=== PATIENT | male | born 1965 | race Caucasian/White ===

== ENCOUNTER → 2016-05-30 | Outpatient (CLI) | payer OTHER ==
[~2016-05-30] MED LIST: AMLO5TAB2 PO; ASP81TEC PO; AZTH250C PO; Amlodipine PO; Atorvastatin Calcium PO; CIPR2.5D2 OP; CYCL10TA9 PO; ENAL20TA PO; Enalapril PO; HCPR10FM PR; HCT25T PO; HSCO125 SL; HYDR-757 PO; NAPR-684 PO; ONDA-42 SL; PRD20T PO; RMP2.5C PO; TRAM50TA2 PO
--- OUTSIDE RECORDS SUMMARY | 2016-05-30 11:21 | XMS REPORT | Continuity of Care Document ---
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 Name Role Phone RAMON GARCIA MD PCP Insurance Providers Payer Name Policy Number Subscriber Name Relationship [place] [id number] Juanito Hernandez 18 Self / Same As Patient Advance Directives Directive Response Recorded Date/Time Advance Directives No 12/16/13 3:07am Health Care Power of Certified Endoscopy Technician No 12/16/13 3:07am Organ Donor No 12/16/13 3:07am Resuscitation Status Full Code 12/16/13 3:07am Problems Medical Problems Problem Onset Date Status Biceps tendinitis Unknown Active Chest pain Unknown Active Chest pain Unknown Active Diarrhea Unknown Active Abdominal cramping Unknown Active Diarrhea Unknown Active Medications Medication Dose Route Sig Days/Qty Instructions Order Date Discontinued Date Status Hydrocortisone/Pramoxine 0 Gm NE FOUR TIMES DAILY 1 Qty APPLY SPARINGLY TO AFFECTED AREA 09/20/08 11/21/12 Discontinued [Amlodipine] 5 Mg PO DAILY 11/21/12 10/25/13 Discontinued [Enalapril] 20 Mg PO DAILY 11/21/12 10/25/13 Discontinued Azithromycin 1 Tab PO DAILY 4 Days 11/21/12 05/14/13 Discontinued Prednisone 40 Mg PO DAILY 4 Days 11/21/12 05/14/13 Discontinued Ciprofloxacin Hcl 2 Drops OP EVERY 4HRS 3 Days 11/21/12 05/14/13 Discontinued Hydrocodone Bit/Acetaminophen 1 Ea PO EVERY 6 HOURS PRN MILD PAIN 20 Qty 05/14/13 10/25/13 Discontinued Naproxen 1 Ea PO THREE TIMES A DAY PRN PAIN 20 Qty 05/14/13 10/25/13 Discontinued Amlodipine Besylate (Norvasc 5 Mg) 5 Mg PO DAILY 10/25/13 10/25/13 Discontinued Enalapril Maleate 20 Mg PO DAILY 10/25/13 10/25/13 Discontinued Hydrochlorothiazide 25 Mg PO DAILY 10/25/13 12/16/13 Discontinued Aspirin 81 Mg PO DAILY 100 Qty 10/25/13 12/16/13 Discontinued [Atorvastatin Calcium] 10 Mg PO BEDTIME 10/25/13 12/16/13 Discontinued Ramipril 2.5 Mg PO DAILY 30 Qty 10/25/13 Active Hyoscyamine Sulfate 0.125 Mg SL EVERY 4HRS PRN CRAMPS 10 Qty 12/16/13 Active Ondansetron Hcl 4 Mg SL EVERY 4HRS PRN NAUSEA/VOMITING 10 Qty FOR NAUSEA AND VOMITING 12/16/13 Active Social History Social History Problem Response Recorded Date/Time Alcohol Use Rarely Uses 12/16/2013 3:07am Recreational Drug Use No 12/16/2013 3:07am Smoking Status Never a Smoker 12/16/2013 3:07am Query Response Start Date Stop Date Smoking Status Never a Smoker Hospital Discharge Instructions No hospital discharge instructions. Plan of Care No plan of care. Functional Status No functional status results. Allergies, Adverse Reactions, Alerts Allergen Type Severity Reaction Status Last Updated Penicillins ([id number]) Allergy Mild Active 09/20/08 Quinolones Allergy Mild Active 12/16/13 Immunizations Name Given Type Date of Pneumonia Vaccine 10/25/12 Historical Date of Influenza Vaccine 02/01/13 Historical Hepatitis B Yes Historical Vital Signs Acute Vital Signs Vital Response Date/Time Temperature (Fahrenheit) 97.7 degrees F (97.6 - 99.5) Temperature (Calculated Celsius) 36.57328 degrees C (36.4 - 37.5) Temperature Source Temporal Pulse Rate (adult) 85 bpm (60 - 90) Respiratory Rate 18 bpm (12 - 24) O2 Sat by Pulse Oximetry 97 % (88 - 100) Blood Pressure 133/95 mm Hg Pain Pain Intensity 4 Height (Feet) 6 feet Height (Inches) 3 inches Height (Calculated Centimeters) 190.061337 cm Weight (Pounds) 313 pounds Weight (Calculated Kilograms) 141.632500 kilograms Calculated BMI 39.12 Results Test Source Date Result Interp. Ref. Range Comments Activated Partial Thromboplast Time October 25, 2013 7:45am 31 SEC N 24-35 Alanine Aminotransferase (ALT/SGPT) October 25, 2013 7:45am 33 U/L N 0-55 Albumin October 25, 2013 7:45am 4.0 G/DL N 3.2-4.5 Alkaline Phosphatase October 25, 2013 7:45am 85 U/L N 40-136 Aspartate Amino Transf (AST/SGOT) October 25, 2013 7:45am 19 U/L N 5-34 BUN/Creatinine Ratio October 25, 2013 7:45am 20 - Basophils # (Auto) October 25, 2013 7:45am 0.0 10^3/uL N 0.0-0.1 Basophils (%) (Auto) October 25, 2013 7:45am 1 % N 0-10 Blood Urea Nitrogen October 25, 2013 7:45am 21 MG/DL H 7-18 Calcium Level October 25, 2013 7:45am 9.4 MG/DL N 8.5-10.1 Carbon Dioxide Level October 25, 2013 7:45am 23 MMOL/L N 21-32 Chloride Level October 25, 2013 7:45am 104 MMOL/L N 98-107 Creatinine October 25, 2013 7:45am 1.07 MG/DL N 0.60-1.30 Eosinophils # (Auto) October 25, 2013 7:45am 0.2 10^3/uL N 0.0-0.3 Eosinophils (%) (Auto) October 25, 2013 7:45am 4 % N 0-10 Glucose Level October 25, 2013 7:45am 124 MG/DL H 70-105 Hematocrit October 25, 2013 7:45am 45 % N 40-54 Hemoglobin October 25, 2013 7:45am 15.1 G/DL N 13.3-17.7 Lymphocytes # (Auto) October 25, 2013 7:45am 1.7 X 10^3 N 1.0-4.0 Lymphocytes (%) (Auto) October 25, 2013 7:45am 30 % N 12-44 Mean Corpuscular Hemoglobin October 25, 2013 7:45am 29 PG N 25-34 Mean Corpuscular Hemoglobin Concent October 25, 2013 7:45am 34 G/DL N 32- 36 Mean Corpuscular Volume October 25, 2013 7:45am 87 FL N 80-99 Mean Platelet Volume October 25, 2013 7:45am 10.1 FL N 7.4-10.4 Monocytes # (Auto) October 25, 2013 7:45am 0.6 X 10^3 N 0.0-1.0 Monocytes (%) (Auto) October 25, 2013 7:45am 11 % N 0-12 Neutrophils # (Auto) October 25, 2013 7:45am 3.1 X 10^3 N 1.8-7.8 Neutrophils (%) (Auto) October 25, 2013 7:45am 54 % N 42-75 Platelet Count October 25, 2013 7:45am 218 10^3/uL N 130-400 Potassium Level October 25, 2013 7:45am 4.5 MMOL/L N 3.6-5.0 Prothrombin Time October 25, 2013 7:45am 12.8 SEC N 12.2-14.7 Red Blood Count October 25, 2013 7:45am 5.13 10^6/uL N 4.35-5.85 Red Cell Distribution Width October 25, 2013 7:45am 13.8 % N 10.0-14.5 Sodium Level October 25, 2013 7:45am 138 MMOL/L N 135-145 Total Bilirubin October 25, 2013 7:45am 0.4 MG/DL N 0.1-1.0 Total Protein October 25, 2013 7:45am 7.4 G/DL N 6.4-8.2 Troponin I October 25, 2013 7:45am < 0.30 NG/ML - White Blood Count October 25, 2013 7:45am 5.7 10^3/uL N 4.3-11.0 Estimat Glomerular Filtration Rate October 25, 2013 7:45am > 60 - GFR INTERPRETIVE DATA UNITS FOR ESTIMATED GFR (eGFR): mL/min/1.73 M2 REFERENCE RANGE FOR ESTIMATED GFR (eGFR) eGFR NORMAL eGFR >60 MODERATELY DECREASED eGFR 30-59 SEVERLY DECREASED eGFR 15-29 KIDNEY FAILURE <15 (OR DIALYSIS) INR Comment October 25, 2013 7:45am 1.0 N 0.8-1.4 INTERPRETIVE DATASUGGESTED THERAPEUTIC RANGE FOR INR'S: VENOUS THROMBOSIS, PULMONARY EMBOLISM, OR PREVENTION OF SYSTEMIC EMBOLISM (EG. IN ATRIAL FIBRILLATION): 2.0 - 3.0 MECHANICAL PROSTHETIC HEART VALVES: 2.5 - 3.5* *NOTE: INR'S UP TO 4.5 MAY BE NECESSARY IN SELECTED GROUPS OF HIGH RISK PATIENTS. [employer] CONSENSUS CONFERENCE ON ANTITHROMBOTIC THERAPY (2000). Procedures No known history of procedures. Encounters Encounter Location Date/Time Departed Emergency Room [facility] 12/16/13 2:56am Recent Diagnosis
--- NOTE | 2016-05-30 12:38 | Diagnostic Imaging Report ---
3 views of the left ankle. INDICATION: Left ankle pain. FINDINGS: There is no fracture, dislocation, or radiopaque foreign body. Good alignment of the ankle mortise is seen. There is enthesopathy along the insertion of the Achilles tendon. IMPRESSION: No acute process. Dictated by: Dictated on workstation # [id number]
== END ==
LOC: RAD 11:17
PROVIDERS: ATTEND Chiropractor Sports Physician
DX: M25.572 Pain in left ankle and joints of left foot (principal)
CPT/HCPCS: 73610

== ENCOUNTER 2020-08-28 20:37 | Emergency (ER) | payer SELFPAY ==
[~2020-08-28] VITALS: Ht 188 cm; Wt 155.1 kg
[~2020-08-28 20:37] MED LIST changes: -TRAM50TA2 PO; +TRM50T PO
[2020-08-28] MEDS ORDERED: KETOROLAC 30 MG/ML VIAL IVP STA (20:57)
[2020-08-28] MEDS ORDERED: LACTATED RINGERS 1,000 ML IV ONE ×2 (21:00→22:15)
[2020-08-28 21:15] LABS: BASOPHILS # (AUTO) 0.1 10^3/uL (0.0-0.1); BASOPHILS % (AUTO) 1 % (0-10); EOSINOPHILS # (AUTO) 0.1 10^3/uL (0.0-0.3); EOSINOPHILS % (AUTO) 2 % (0-10); HEMATOCRIT 43 % (40-54); HEMOGLOBIN 14.2 g/dL (13.3-17.7); LYMPHOCYTES # (AUTO) 1.9 10^3/uL (1.0-4.0); LYMPHOCYTES % (AUTO) 30 % (12-44); MEAN CORPUSCULAR HEMOGLOBIN 29 pg (25-34); MEAN CORPUSCULAR HGB CONC 33 g/dL (32-36); MEAN CORPUSCULAR VOLUME 89 fL (80-99); MEAN PLATELET VOLUME 10.4 fL (9.0-12.2); MONOCYTES # (AUTO) 0.8 10^3/uL (0.0-1.0); MONOCYTES % (AUTO) 12 % (0-12); NEUTROPHILS # (AUTO) 3.4 10^3/uL (1.8-7.8); NEUTROPHILS % (AUTO) 54 % (42-75); PLATELET COUNT 194 10^3/uL (130-400); WHITE BLOOD COUNT 6.3 10^3/uL (4.3-11.0)
[2020-08-28 21:25] LABS: ALBUMIN 3.9 GM/DL (3.2-4.5); CHLORIDE 105 MMOL/L (98-107)
[2020-08-28 21:26] LABS: POTASSIUM 4.2 MMOL/L (3.6-5.0); SODIUM 137 MMOL/L (135-145)
[2020-08-28 21:27] LABS: CALCIUM 9.2 MG/DL (8.5-10.1)
[2020-08-28 21:28] LABS: GLUCOSE 154 MG/DL (70-105)
[2020-08-28 21:29] LABS: CARBON DIOXIDE 18 MMOL/L (21-32)
[2020-08-28 21:30] LABS: BILIRUBIN,TOTAL 0.3 MG/DL (0.1-1.0)
[2020-08-28 21:31] LABS: ALKALINE PHOSPHATASE 78 U/L (40-136)
[2020-08-28 21:32] LABS: CREATININE SERUM 1.23 MG/DL (0.60-1.30); GFR ESTIMATED > 60
[2020-08-28 21:33] LABS: BUN/CREATININE RATIO 14
[2020-08-28 21:34] LABS: ALANINE AMINOTRANSFERASE 36 U/L (0-55)
--- NOTE | 2020-08-28 22:12 | Diagnostic Imaging Report ---
PROCEDURE: CT urinary tract, rule out kidney stone. TECHNIQUE: Multiple contiguous axial images were obtained through the abdomen and pelvis without the use of intravenous contrast. Auto Exposure Controls were utilized during the CT exam to meet ALARA standards for radiation dose reduction. INDICATION: Flank pain. COMPARISON: Prior examination from 01/26/2015. FINDINGS: The heart size is normal. The lung bases are clear. There is some fatty infiltration of the liver. The gallbladder is contracted. There is no biliary ductal dilatation. Spleen is normal. Pancreas and adrenal glands are unremarkable. There is a 2 mm nonobstructing stone in the left kidney. There is also a 2 mm nonobstructing stone in the right kidney. There is a cyst in the anterior right kidney. There is no evidence of obstructive uropathy. Aorta is nonaneurysmal. The bowel gas pattern is nonspecific. There is no free air. There is no ascites. There are no focal inflammatory changes. Bladder is normal. There is no pelvic mass, adenopathy or free fluid. There are moderate degenerative changes in the spine. IMPRESSION: 1. Bilateral tiny nonobstructing renal calculi without evidence of obstructive uropathy. There is also a cyst in the anterior aspect of the right kidney which is relatively unchanged. 2. Fatty infiltration of the liver. 3. No other acute abnormality in the abdomen or pelvis. Dictated by: Dictated on workstation # [id number]
--- NOTE | 2020-08-28 22:16 | ED Abdominal Pain ---
General Chief Complaint: General Problems/Pain Stated Complaint: GROIN PAIN Nursing Triage Note: PT TO ROOM 06 VIA W/C AND TRANSFERRED SELF TO BED WITH C/O RIGHT SIDE GROIN PAIN. PT STATES HE WAS BOWLING AND FELT SOMETHING "POP AND TEAR". Sepsis Screen: No Definite Risk Source of Information: Patient History of Present Illness Date Seen by Provider: August 28, 2020 Time Seen by Provider: 20:53 Initial Comments PT ARRIVES VIA POV WANTS WHEELCHAIR ON ARRIVAL--STATES HE "CAN'T WALK" STATES 45 MINUTES PRIOR TO ARRIVAL, HE WAS BOWLING AND "FELT A POP AND A TEAR" IN HIS RIGHT GROIN C/O SEVERE PAIN TO AREA, RATES 10 HAS NOT TAKEN ANYTHING FOR PAIN DID NOT FALL OR HAVE ANY DIRECT TRAUMA TO THE AREA NO SWELLING OR BRUISING TO THE AREA NO RADIATION OF PAIN NO ABDOMINAL PAIN NO TESTICULAR PAIN NO PARESTHESIAS OR MOTOR DEFICITS NO DIFFICULTY URINATING NO NAUSEA/VOMITING NO FEVER OR RECENT ILLNESS NO PRIOR INJURY OR SURGERY TO THIS AREA. NO HISTORY OF SIMILAR PT HAS HAD "1 BEER" TONIGHT DENIES ANY COVID-19 SYMPTOMS OR KNOWN EXPOSURE TO COVID-19 PCP: NONE Allergies and Home Medications Allergies Coded Allergies: Penicillins (Unverified Allergy, Mild, 09/20/08) Quinolones (Verified Allergy, Mild, 12/16/13) Home Medications Cyclobenzaprine HCl 10 Mg Tablet, 10 MG PO Q8H PRN for SPASMS Prescribed by: BRAULIO SARGENT on 01/26/15 1523 Cyclobenzaprine HCl 10 Mg Tablet, 10 MG PO Q8H PRN for SPASMS Prescribed by: SANDRA MUÑOZ on 08/28/20 2244 Hyoscyamine Sulfate 0.125 Mg Tab, 0.125 MG SL Q4H PRN for CRAMPS Prescribed by: CAROL ESPINAL on 12/16/13 0428 Ketorolac Tromethamine 10 Mg Tablet, 10 MG PO Q6H Prescribed by: SANDRA MUÑOZ on 08/28/20 2244 Ondansetron Hcl 4 Mg Tab, 4 MG SL Q4H PRN for NAUSEA/VOMITING FOR NAUSEA AND VOMITING Prescribed by: CAROL ESPINAL on 12/16/13 0433 Ramipril 2.5 Mg Cap, 2.5 MG PO DAILY Prescribed by: ELE GARCIA on 10/25/13 1725 Tramadol HCl 50 Mg Tablet, 50 MG PO Q4H PRN for PAIN Prescribed by: BRAULIO SARGENT on 01/26/15 1523 Patient Home Medication List Home Medication List Reviewed: Yes Review of Systems Review of Systems Constitutional: no symptoms reported Respiratory: No Symptoms Reported Cardiovascular: No Symptoms Reported Gastrointestinal: See HPI Genitourinary: No Symptoms Reported Musculoskeletal: see HPI Skin: no symptoms reported Psychiatric/Neurological: No Symptoms Reported Endocrine: No Symptoms Reported Hematologic/Lymphatic: No Symptoms Reported Past Ppsutbf-[id number] Hx Patient Social History Alcohol Use: Rarely Uses Number of Drinks Today: 1 Alcohol Beverage of Choice: Beer Drug of Choice: DENIES Smoking Status: Never a Smoker 2nd Hand Smoke Exposure: No Recent Infectious Disease Expo: No Immunizations Up To Date Date of Pneumonia Vaccine: Oct 25, 2012 Date of Influenza Vaccine: Feb 01, 2013 Past Medical History Surgeries: Yes (CARDIAC CATH) Cardiac Respiratory: No Cardiac: Yes Hypertension Neurological: No Genitourinary: No Gastrointestinal: No Musculoskeletal: No Endocrine: Yes (MORBID OBESITY) Hypothyroidsim HEENT: No Cancer: No Psychosocial: No Integumentary: No Blood Disorders: No Family Medical History Family history: Hypertension 19 FATHER No Pertinent Family Hx Physical Exam Vital Signs Vital Signs - First Documented 08/28/20 08/28/20 20:51 23:41 Temp 36.0 Pulse 78 Resp 19 B/P (MAP) 150/101 (117) Pulse Ox 96 O2 Delivery Room Air Capillary Refill : Less Than 3 Seconds Height/Weight/BMI Height: 6'3" Weight: 330lbs. oz. 149.596747nm; 43.00 BMI Method:Estimated General Appearance: WD/WN, obese, other (VERY DRAMATIC, MOVES VERY SLOWLY, AND BENT AT WAIST. MALODOROUS, + ODOR OF ETOH) Respiratory: normal breath sounds Cardiovascular: normal peripheral pulses, regular rate, rhythm Gastrointestinal: normal bowel sounds, non tender, soft Genital/Rectal: normal genital exam; No tenderness Extremities: other (TENDERNESS TO RIGHT INGUINAL AREA AND UPPER/MEDIAL THIGH. NO SWELLING OR BRUISING. NO HERNIA NOTED. LIMITED ROM OF RIGHT LEG DUE TO PAIN ) Back: no CVA tenderness Neurologic/Psychiatric: no motor/sensory deficits, alert, oriented x 3 Skin: normal color, warm/dry Progress/Results/Core Measures Results/Orders Lab Results Laboratory Tests Test 08/28/20 21:09 08/28/20 22:22 Range/Units White Blood Count 6.3 4.3-11.0 10^3/uL Red Blood Count 4.84 4.30-5.52 10^6/uL Hemoglobin 14.2 13.3-17.7 g/dL Hematocrit 43 40-54 % Mean Corpuscular Volume 89 80-99 fL Mean Corpuscular Hemoglobin 29 25-34 pg Mean Corpuscular Hemoglobin Concent 33 32-36 g/dL Red Cell Distribution Width 13.5 10.0-14.5 % Platelet Count 194 130-400 10^3/uL Mean Platelet Volume 10.4 9.0-12.2 fL Immature Granulocyte % (Auto) 1 % Neutrophils (%) (Auto) 54 42-75 % Lymphocytes (%) (Auto) 30 12-44 % Monocytes (%) (Auto) 12 0-12 % Eosinophils (%) (Auto) 2 0-10 % Basophils (%) (Auto) 1 0-10 % Neutrophils # (Auto) 3.4 1.8-7.8 10^3/uL Lymphocytes # (Auto) 1.9 1.0-4.0 10^3/uL Monocytes # (Auto) 0.8 0.0-1.0 10^3/uL Eosinophils # (Auto) 0.1 0.0-0.3 10^3/uL Basophils # (Auto) 0.1 0.0-0.1 10^3/uL Immature Granulocyte # (Auto) 0.0 0.0-0.1 10^3/uL Sodium Level 137 135-145 MMOL/L Potassium Level 4.2 3.6-5.0 MMOL/L Chloride Level 105 98-107 MMOL/L Carbon Dioxide Level 18 L 21-32 MMOL/L Anion Gap 14 5-14 MMOL/L Blood Urea Nitrogen 17 7-18 MG/DL Creatinine 1.23 0.60-1.30 MG/DL Estimat Glomerular Filtration Rate > 60 BUN/Creatinine Ratio 14 Glucose Level 154 H 70-105 MG/DL Calcium Level 9.2 8.5-10.1 MG/DL Corrected Calcium 9.3 8.5-10.1 MG/DL Total Bilirubin 0.3 0.1-1.0 MG/DL Aspartate Amino Transf (AST/SGOT) 26 5-34 U/L Alanine Aminotransferase (ALT/SGPT) 36 0-55 U/L Alkaline Phosphatase 78 40-136 U/L Total Protein 7.0 6.4-8.2 GM/DL Albumin 3.9 3.2-4.5 GM/DL Serum Alcohol < 10 <10 MG/DL Urine Color YELLOW Urine Clarity CLEAR Urine pH 6.0 5-9 Urine Specific [place] 1.025 H 1.016-1.022 Urine Protein NEGATIVE NEGATIVE Urine Glucose (UA) NEGATIVE NEGATIVE Urine Ketones NEGATIVE NEGATIVE Urine Nitrite NEGATIVE NEGATIVE Urine Bilirubin NEGATIVE NEGATIVE Urine Urobilinogen 0.2 < = 1.0 MG/DL Urine Leukocyte Esterase NEGATIVE NEGATIVE Urine RBC (Auto) NEGATIVE NEGATIVE Urine RBC NONE /HPF Urine WBC NONE /HPF Urine Squamous Epithelial Cells RARE /HPF Urine Crystals NONE /LPF Urine Bacteria NEGATIVE /HPF Urine Casts NONE /LPF Urine Mucus NEGATIVE /LPF Urine Culture Indicated NO Urine Opiates Screen NEGATIVE NEGATIVE Urine Oxycodone Screen NEGATIVE NEGATIVE Urine Methadone Screen NEGATIVE NEGATIVE Urine Propoxyphene Screen NEGATIVE NEGATIVE Urine Barbiturates Screen NEGATIVE NEGATIVE Ur Tricyclic Antidepressants Screen NEGATIVE NEGATIVE Urine Phencyclidine Screen NEGATIVE NEGATIVE Urine Amphetamines Screen NEGATIVE NEGATIVE Urine Methamphetamines Screen NEGATIVE NEGATIVE Urine Benzodiazepines Screen NEGATIVE NEGATIVE Urine Cocaine Screen NEGATIVE NEGATIVE Urine Cannabinoids Screen NEGATIVE NEGATIVE My Orders Orders - SANDRA MUÑOZ DO Ed Iv/Invasive Line Start (08/28/20 20:57) Alcohol (08/28/20 20:57) Cbc With Automated Diff (08/28/20 20:57) Comprehensive Metabolic Panel (08/28/20 20:57) Drug Screen Stat (Urine) (08/28/20 20:57) Ua Culture If Indicated (08/28/20 20:57) Ed Iv/Invasive Line Start (08/28/20 20:57) Lactated Ringers (Lr 1000 Ml Iv Solution (08/28/20 21:00) Ketorolac Injection (Toradol Injection) (08/28/20 20:57) Ct Abd/Pelvis Wo(Kidney Stone) (08/28/20 21:09) Abdomen/Kub 1view (08/28/20 21:09) Ed Iv/Invasive Line Start (08/28/20 22:06) Lactated Ringers (Lr 1000 Ml Iv Solution (08/28/20 22:15) Rx-Cyclobenzaprine Tablet (Rx-Flexeril T (08/28/20 22:41) Rx-Naproxen (Rx-Naprosyn) (08/28/20 22:41) Medications Given in ED Vital Signs/I&O 08/28/20 08/28/20 20:51 23:41 Temp 36.0 36.0 Pulse 78 78 Resp 19 19 B/P (MAP) 150/101 (117) 146/98 (117) Pulse Ox 96 O2 Delivery Room Air Room Air Blood Pressure Mean: 117 Progress Progress Note : Progress Note GIVEN TORADOL FOR PAIN WITH IMPROVEMENT PT ABLE TO WALK OUT OF ER ON HIS OWN Diagnostic Imaging Comments CT ABDOMEN/PELVIS--PER RADIOLOGIST REPORT AT 2215 FINDINGS: The heart size is normal. The lung bases are clear. There is some fatty infiltration of the liver. The gallbladder is contracted. There is no biliary ductal dilatation. Spleen is normal. Pancreas and adrenal glands are unremarkable. There is a 2 mm nonobstructing stone in the left kidney. There is also a 2 mm nonobstructing stone in the right kidney. There is a cyst in the anterior right kidney. There is no evidence of obstructive uropathy. Aorta is nonaneurysmal. The bowel gas pattern is nonspecific. There is no free air. There is no ascites. There are no focal inflammatory changes. Bladder is normal. There is no pelvic mass, adenopathy or free fluid. There are moderate degenerative changes in the spine. IMPRESSION: 1. Bilateral tiny nonobstructing renal calculi without evidence of obstructive uropathy. There is also a cyst in the anterior aspect of the right kidney which is relatively unchanged. 2. Fatty infiltration of the liver. 3. No other acute abnormality in the abdomen or pelvis. Reviewed: Reviewed by Me Departure Impression Primary Impression: Strain of right groin Disposition: HOME, SELF-CARE Condition: Improved Departure-Patient Inst. Decision time for Depature: 22:40 Referrals: NO,LOCAL PHYSICIAN (PCP/Family) Primary Care Physician Patient Instructions: Groin Strain (DC) Add. Discharge Instructions: ICE TO SORE AREA AT 20 MINUTE INTERVALS FOR FIRST 1-2 DAYS, THEN ALTERNATE ICE AND HEAT TO AREA AT 20 MINUTE INTERVAL NO LIFTING, NO TWISTING OR BENDING, OR ANY STRENUOUS ACTIVITIES UNTIL YOU ARE CLEARED BY YOUR DR. FOLLOW UP WITH YOUR DR NEXT WEEK FOR FURTHER CARE All discharge instructions reviewed with patient and/or family. Voiced understanding. Scripts Cyclobenzaprine HCl (Cyclobenzaprine HCl) 10 Mg Tablet 10 MG PO Q8H PRN for SPASMS, #15 TAB 0 Refills Prov: SANDAR MUÑOZ DO 08/28/20 Ketorolac Tromethamine (Ketorolac Tromethamine) 10 Mg Tablet 10 MG PO Q6H for Pain, #15 TAB Prov: SANDRA MUÑOZ DO 08/28/20 SANDRA MUÑOZ DO August 28, 2020 22:16
[2020-08-28 22:28] LABS: BILIRUBIN,URINE NEGATIVE (NEGATIVE); CLARITY,URINE CLEAR; COLOR,URINE YELLOW; GLUCOSE, URINE (UA) NEGATIVE (NEGATIVE); KETONES,URINE NEGATIVE (NEGATIVE); LEUKOCYTE ESTERASE ,URINE NEGATIVE (NEGATIVE); NITRITE,URINE NEGATIVE (NEGATIVE); PROTEIN,URINE NEGATIVE (NEGATIVE)
[2020-08-28 22:35] LABS: BACTERIA,URINE NEGATIVE /HPF; SQUAMOUS EPITHELIAL CELL,UR RARE /HPF
[2020-08-28] MEDS ORDERED: RX-CYCLOBENZAPRINE 10 MG (FLEXERIL) TAB PPK#3 PO STA (22:41)
[2020-08-28] MEDS ORDERED: RX-NAPROXEN (NAPROSYN) 250 MG TAB PPK#4 PO STA (22:41)
[2020-08-28 22:42] LABS: AMPHETAMINE SCREEN, URINE NEGATIVE (NEGATIVE); BARBITURATE SCREEN URINE NEGATIVE (NEGATIVE); BENZODIAZEPINES SCREEN URINE NEGATIVE (NEGATIVE); CANNABINOID SCREEN, URINE NEGATIVE (NEGATIVE); COCAINE SCREEN URINE NEGATIVE (NEGATIVE); METHADONE STAT NEGATIVE (NEGATIVE); METHAMPHETAMINE SCREEN URINE S NEGATIVE (NEGATIVE); OPIATE SCREEN URINE NEGATIVE (NEGATIVE); OXYCODONE STAT NEGATIVE (NEGATIVE); PROPOXYPHENE STAT NEGATIVE (NEGATIVE); TRICYCLIC ANTIDEPRESSANTS SCRE NEGATIVE (NEGATIVE)
[2020-08-28] MEDS ORDERED: CYCL10TA9 PO (22:44)
[2020-08-28] MEDS ORDERED: KETO10TA PO (22:44)
[2020-08-28 23:41] VITALS: BP 146/98
--- NOTE | 2020-08-29 07:59 | Diagnostic Imaging Report ---
INDICATION: Flank pain. COMPARISON: Followup CT from same day. FINDINGS: 2 supine radiographic views of the abdomen were obtained. Small bowel loops are nondistended. There is no large collection of free intraperitoneal air. Mild air and stool is noted scattered throughout the colon. No unexpected extraosseous calcifications or radiopaque foreign bodies are seen. IMPRESSION: 1. Nonobstructed small bowel gas pattern. Dictated by: Dictated on workstation # [id number]
== END 2020-08-28 22:54 | disposition home or self-care (01) ==
LOC: EDUNIT# 20:37 → ER 20:41
DX: S39.011A Strain of muscle, fascia and tendon of abdomen, initial encounter (principal); E66.01 Morbid (severe) obesity due to excess calories; I10 Essential (primary) hypertension; Z68.41 Body mass index [BMI] 40.0-44.9, adult; Z88.0 Allergy status to penicillin; Z88.8 Allergy status to other drugs, medicaments and biological substances; Z79.899 Other long term (current) drug therapy; X50.0XXA Overexertion from strenuous movement or load, initial encounter
CPT/HCPCS: 74018; 74176; 80053; 80306; 81000; 85025; 99284; G0480; 36415; 80320

== ENCOUNTER 2021-04-24 01:10 | Emergency (ER) | payer SELFPAY ==
[~2021-04-24] VITALS: Ht 190 cm; Wt 144.7 kg
[~2021-04-24 01:10] MED LIST changes: +CYCL10TA25 PO; -CYCL10TA9 PO; +KETO10TA PO
[2021-04-24] MEDS ORDERED: KETOROLAC 30 MG/ML VIAL IVP STA (01:37)
[2021-04-24 01:42] LABS: BILIRUBIN,URINE NEGATIVE (NEGATIVE); CLARITY,URINE CLEAR; COLOR,URINE YELLOW; GLUCOSE, URINE (UA) NEGATIVE (NEGATIVE); KETONES,URINE NEGATIVE (NEGATIVE); LEUKOCYTE ESTERASE ,URINE NEGATIVE (NEGATIVE); NITRITE,URINE NEGATIVE (NEGATIVE); PROTEIN,URINE NEGATIVE (NEGATIVE)
[2021-04-24] MEDS ORDERED: ONDANSETRON 4 MG/2 ML (SDV) Z0FRAN IVP ONE (01:45)
[2021-04-24] MEDS ORDERED: LACTATED RINGERS 1,000 ML IV ONE (01:45)
[2021-04-24 02:00] LABS: BACTERIA,URINE NEGATIVE /HPF
[2021-04-24 02:06] LABS: BASOPHILS % (AUTO) 0 % (0-10); EOSINOPHILS # (AUTO) 0.1 10^3/uL (0.0-0.3); EOSINOPHILS % (AUTO) 1 % (0-10); HEMATOCRIT 42 % (40-54); HEMOGLOBIN 13.6 g/dL (13.3-17.7); LYMPHOCYTES # (AUTO) 1.3 10^3/uL (1.0-4.0); LYMPHOCYTES % (AUTO) 14 % (12-44); MEAN CORPUSCULAR HEMOGLOBIN 29 pg (25-34); MEAN CORPUSCULAR HGB CONC 32 g/dL (32-36); MEAN CORPUSCULAR VOLUME 89 fL (80-99); MEAN PLATELET VOLUME 9.9 fL (9.0-12.2); MONOCYTES # (AUTO) 1.1 10^3/uL (0.0-1.0); MONOCYTES % (AUTO) 12 % (0-12); NEUTROPHILS # (AUTO) 6.9 10^3/uL (1.8-7.8); NEUTROPHILS % (AUTO) 73 % (42-75); PLATELET COUNT 197 10^3/uL (130-400); WHITE BLOOD COUNT 9.5 10^3/uL (4.3-11.0)
[2021-04-24 02:12] LABS: AMPHETAMINE SCREEN, URINE NEGATIVE (NEGATIVE); BARBITURATE SCREEN URINE NEGATIVE (NEGATIVE); BENZODIAZEPINES SCREEN URINE NEGATIVE (NEGATIVE); CANNABINOID SCREEN, URINE NEGATIVE (NEGATIVE); COCAINE SCREEN URINE NEGATIVE (NEGATIVE); METHADONE STAT NEGATIVE (NEGATIVE); METHAMPHETAMINE SCREEN URINE S NEGATIVE (NEGATIVE); OPIATE SCREEN URINE POSITIVE (NEGATIVE); OXYCODONE STAT NEGATIVE (NEGATIVE); PROPOXYPHENE STAT NEGATIVE (NEGATIVE); TRICYCLIC ANTIDEPRESSANTS SCRE NEGATIVE (NEGATIVE)
[2021-04-24 02:12] LABS: ALBUMIN 4.1 GM/DL (3.2-4.5); POTASSIUM 4.2 MMOL/L (3.6-5.0)
[2021-04-24 02:13] LABS: CALCIUM 9.2 MG/DL (8.5-10.1)
[2021-04-24 02:14] LABS: TOTAL PROTEIN 7.8 GM/DL (6.4-8.2)
[2021-04-24 02:16] LABS: BILIRUBIN,TOTAL 1.1 MG/DL (0.1-1.0)
[2021-04-24 02:18] LABS: CREATININE SERUM 2.63 MG/DL (0.60-1.30)
[2021-04-24] MEDS ORDERED: NS IV 1000 ML 1,000 ML IV SCH (02:30)
--- NOTE | 2021-04-24 02:46 | ED Abdominal Pain ---
General Chief Complaint: Abdominal/GI Problems Stated Complaint: KIDNEY STONE Nursing Triage Note: DX WITH 2MM LEFT RENAL STONE 04/22/21 AT [facility]. REPORTS PAIN INCREASED TONIGHT. Source of Information: Patient History of Present Illness Date Seen by Provider: Apr 24, 2021 Time Seen by Provider: 01:30 Initial Comments PT ARRIVES VIA POV FROM HOME STATES HE WAS DX WITH 2 MM KIDNEY STONE ON THE LEFT, 3 DAYS AGO AT [facility] IN [place] WAS REFERRED TO A UROLOGIST AT [place], BUT HAS NOT ATTEMPTED TO MAKE AN APPOINTMENT YET. HAS BEEN HAVING LLQ PAIN X 4 DAYS WAS SENT HOME WITH UNKNOWN MEDICATIONS, BUT THINKS ONE WAS HYDROCODONE ( CONFIRMED THAT PT WAS DISMISSED WITH RX'S FOR FLOMAX, ZOFRAN, HYDROCODONE 5/325). WAS ALSO SENT HOME WITH A STRAINER FOR URINE STATES IT WAS NOT HELPING, SO HIS FIELD SUPPORT REPRESENTATIVE IN [place] GAVE HIM A HIGHER STRENGTH PAIN GOT WORSE TONIGHT AROUND 2230 AND TOOK 1 HYDROCODONE--NO IMPROVEMENT STATES HOT SHOWER HELPS WITH PAIN SLIGHT NAUSEA WITH PAIN, NO VOMITING. NO NAUSEA NOW NO PAIN ON URINATION, BUT STREAM IS A LITTLE WEAKER THAN NORMAL NO OBVIOUS BLOOD IN URINE NO FEVER NO PRIOR HISTORY OF KIDNEY STONES OR ANY KIDNEY PROBLEMS PT HAS NOT HAD COVID-19 VACCINE PCP: FIELD SUPPORT REPRESENTATIVE IN [place], [place] Allergies and Home Medications Allergies Coded Allergies: Penicillins (Unverified Allergy, Mild, 09/20/08) Quinolones (Verified Allergy, Mild, 12/16/13) Patient Home Medication List Home Medication List Reviewed: Yes Cyclobenzaprine HCl (Cyclobenzaprine HCl) 10 Mg Tablet, 10 MG PO Q8H PRN for SPASMS Prescribed by: BRAULIO SARGENT on 01/26/15 1523 Cyclobenzaprine HCl (Cyclobenzaprine HCl) 10 Mg Tablet, 10 MG PO Q8H PRN for SPASMS Prescribed by: SANDRA MUÑOZ on 08/28/20 2244 Hydrocodone Bit/Acetaminophen (HYDROcodone/APAP 7.5/325 TAB) 1 Ea Tablet, 1-2 EA PO Q4-6 PRN for PAIN Prescribed by: SANDRA MUÑOZ on 04/24/21 0257 Hyoscyamine Sulfate (Levsin Sl) 0.125 Mg Tab, 0.125 MG SL Q4H PRN for CRAMPS Prescribed by: CAROL ESPINAL on 12/16/13 0428 Ketorolac Tromethamine (Ketorolac Tromethamine) 10 Mg Tablet, 10 MG PO Q6H Prescribed by: SANDRA MUÑOZ on 08/28/20 2244 Ondansetron Hcl (Zofran Oral Dissolve) 4 Mg Tab, 4 MG SL Q4H PRN for NAUSEA/VOMITING Prescribed by: CAROL ESPINAL on 12/16/13 0433 Ramipril (Altace) 2.5 Mg Cap, 2.5 MG PO DAILY Prescribed by: ELE GARCIA on 10/25/13 1725 Tramadol HCl (Tramadol HCl) 50 Mg Tablet, 50 MG PO Q4H PRN for PAIN Prescribed by: BRAULIO SARGENT on 01/26/15 1523 Review of Systems Review of Systems Constitutional: no symptoms reported Respiratory: No Symptoms Reported Cardiovascular: No Symptoms Reported Gastrointestinal: See HPI, Abdominal Pain, Nausea; Denies Vomiting Genitourinary: See HPI Musculoskeletal: No back pain Skin: no symptoms reported Psychiatric/Neurological: No Symptoms Reported Endocrine: No Symptoms Reported Hematologic/Lymphatic: No Symptoms Reported Past Fkousfl-Iheufc-Tqlfwb Hx Patient Social History Tobacco Use?: No Substance use?: No Alcohol Use?: Yes Alcohol Frequency: Rarely Pt feels they are or have been: No Past Medical History Surgery/Hospitalization HX: HEART CATH, HYPOTHRYOID, HTN, OBESITY. Surgeries: Yes (CARDIAC CATH) Cardiac Respiratory: No Cardiac: Yes Hypertension Neurological: No Genitourinary: Yes (DX KIDNEY STONE 12/20/21 ) Kidney Stones Gastrointestinal: No Musculoskeletal: No Endocrine: Yes (MORBID OBESITY) Hypothyroidsim, Diabetes, Non-Insulin dep HEENT: No Cancer: No Psychosocial: No Integumentary: No Blood Disorders: No Family Medical History Family history: Hypertension 19 FATHER No Pertinent Family Hx Physical Exam Vital Signs Vital Signs - First Documented 04/24/21 01:19 Temp 36.7 Pulse 101 Resp 18 B/P (MAP) 202/105 (137) Pulse Ox 97 O2 Delivery Room Air Capillary Refill : Less Than 3 Seconds Height/Weight/BMI Height: 6'3" Weight: 330lbs. oz. 149.281262wg; 40.00 BMI Method:Estimated General Appearance: WD/WN, no apparent distress, obese (MORBIDLY OBESE, SITTING ON SIDE OF BED, DOES NOT APPEAR TO BE IN ANY DISCOMFORT OR DISTRESS. ) Neck: normal inspection Respiratory: normal breath sounds, no respiratory distress, no accessory muscle use Cardiovascular: regular rate, rhythm, no murmur Gastrointestinal: normal bowel sounds, non tender, soft Back: normal inspection, no CVA tenderness Neurologic/Psychiatric: no motor/sensory deficits, alert, normal mood/affect, oriented x 3 Skin: normal color, warm/dry; No rash Progress/Results/Core Measures Results/Orders Lab Results Laboratory Tests Test 04/24/21 01:27 04/24/21 01:55 Range/Units Urine Color YELLOW Urine Clarity CLEAR Urine pH 6.0 5-9 Urine Specific [place] 1.010 L 1.016-1.022 Urine Protein NEGATIVE NEGATIVE Urine Glucose (UA) NEGATIVE NEGATIVE Urine Ketones NEGATIVE NEGATIVE Urine Nitrite NEGATIVE NEGATIVE Urine Bilirubin NEGATIVE NEGATIVE Urine Urobilinogen 0.2 < = 1.0 MG/DL Urine Leukocyte Esterase NEGATIVE NEGATIVE Urine RBC (Auto) 3+ H NEGATIVE Urine RBC 10-25 H /HPF Urine WBC NONE /HPF Urine Squamous Epithelial Cells NONE /HPF Urine Crystals NONE /LPF Urine Bacteria NEGATIVE /HPF Urine Casts NONE /LPF Urine Mucus NEGATIVE /LPF Urine Culture Indicated NO Urine Opiates Screen POSITIVE H NEGATIVE Urine Oxycodone Screen NEGATIVE NEGATIVE Urine Methadone Screen NEGATIVE NEGATIVE Urine Propoxyphene Screen NEGATIVE NEGATIVE Urine Barbiturates Screen NEGATIVE NEGATIVE Ur Tricyclic Antidepressants Screen NEGATIVE NEGATIVE Urine Phencyclidine Screen NEGATIVE NEGATIVE Urine Amphetamines Screen NEGATIVE NEGATIVE Urine Methamphetamines Screen NEGATIVE NEGATIVE Urine Benzodiazepines Screen NEGATIVE NEGATIVE Urine Cocaine Screen NEGATIVE NEGATIVE Urine Cannabinoids Screen NEGATIVE NEGATIVE White Blood Count 9.5 4.3-11.0 10^3/uL Red Blood Count 4.74 4.30-5.52 10^6/uL Hemoglobin 13.6 13.3-17.7 g/dL Hematocrit 42 40-54 % Mean Corpuscular Volume 89 80-99 fL Mean Corpuscular Hemoglobin 29 25-34 pg Mean Corpuscular Hemoglobin Concent 32 32-36 g/dL Red Cell Distribution Width 13.1 10.0-14.5 % Platelet Count 197 130-400 10^3/uL Mean Platelet Volume 9.9 9.0-12.2 fL Immature Granulocyte % (Auto) 0 % Neutrophils (%) (Auto) 73 42-75 % Lymphocytes (%) (Auto) 14 12-44 % Monocytes (%) (Auto) 12 0-12 % Eosinophils (%) (Auto) 1 0-10 % Basophils (%) (Auto) 0 0-10 % Neutrophils # (Auto) 6.9 1.8-7.8 10^3/uL Lymphocytes # (Auto) 1.3 1.0-4.0 10^3/uL Monocytes # (Auto) 1.1 H 0.0-1.0 10^3/uL Eosinophils # (Auto) 0.1 0.0-0.3 10^3/uL Basophils # (Auto) 0.0 0.0-0.1 10^3/uL Immature Granulocyte # (Auto) 0.0 0.0-0.1 10^3/uL Sodium Level 128 L 135-145 MMOL/L Potassium Level 4.2 3.6-5.0 MMOL/L Chloride Level 96 L 98-107 MMOL/L Carbon Dioxide Level 23 21-32 MMOL/L Anion Gap 9 5-14 MMOL/L Blood Urea Nitrogen 27 H 7-18 MG/DL Creatinine 2.63 H 0.60-1.30 MG/DL Estimat Glomerular Filtration Rate 28 BUN/Creatinine Ratio 10 Glucose Level 119 H 70-105 MG/DL Calcium Level 9.2 8.5-10.1 MG/DL Corrected Calcium 9.1 8.5-10.1 MG/DL Total Bilirubin 1.1 H 0.1-1.0 MG/DL Aspartate Amino Transf (AST/SGOT) 9 5-34 U/L Alanine Aminotransferase (ALT/SGPT) 20 0-55 U/L Alkaline Phosphatase 64 40-136 U/L Total Protein 7.8 6.4-8.2 GM/DL Albumin 4.1 3.2-4.5 GM/DL My Orders Orders - SANDRA MUÑOZ DO Ed Iv/Invasive Line Start (04/24/21 01:37) Ct Abd/Pelvis Wo(Kidney Stone) (04/24/21 01:37) Abdomen/Kub 1view (04/24/21 01:37) Cbc With Automated Diff (04/24/21 01:37) Comprehensive Metabolic Panel (04/24/21 01:37) Drug Screen Stat (Urine) (04/24/21 01:37) Ua Culture If Indicated (04/24/21 01:37) Ed Iv/Invasive Line Start (04/24/21 01:37) Lactated Ringers (Lr 1000 Ml Iv Solution (04/24/21 01:45) Ondansetron Injection (Zofran Injectio (04/24/21 01:45) Ketorolac Injection (Toradol Injection) (04/24/21 01:37) Ed Iv/Invasive Line Start (04/24/21 02:29) Ns Iv 1000 Ml (Sodium Chloride 0.9%) (04/24/21 02:30) Medications Given in ED Vital Signs/I&O 04/24/21 04/24/21 01:19 03:57 Temp 36.7 36.5 Pulse 101 89 Resp 18 16 B/P (MAP) 202/105 (137) 167/95 Pulse Ox 97 99 O2 Delivery Room Air Room Air Blood Pressure Mean: 137 Progress Progress Note : Progress Note GIVEN IV FLUIDS AND TORADOL WITH COMPLETE RELIEF OF PAIN UNEVENTFUL ER STAY Diagnostic Imaging Comments KUB--NO ACUTE PROCESS, PENDING RADIOLOGIST REVIEW CT ABDOMEN/PELVIS--3 MM STONE IN LEFT DISTAL URETER WITH MILD HYDRONEPHROSIS AND MARKED PERIURETERAL/PERINEPHRIC STRANDING. PER [facility] VIA FAX AT 1372 Reviewed: Reviewed by Me Departure Impression Primary Impression: Calculus of distal left ureter Additional Impressions: Renal insufficiency Hyponatremia Disposition: HOME, SELF-CARE Condition: Improved Departure-Patient Inst. Decision time for Depature: 03:45 Referrals: NO,LOCAL PHYSICIAN (PCP) Primary Care Physician MARCIE WILKES MD Patient Instructions: Kidney Stone, Adult ED, How to Strain Your Urine, Acute Kidney Injury (DC) Add. Discharge Instructions: LOTS OF CLEAR LIQUIDS, WITH ELECTROLYTES--ESPECIALLY SODIUM--BUT SUGAR FREE STRAIN ALL URINE --RETURN ANY STONES TO UROLOGIST OFFICE CALL ON MONDAY MORNING TO FOLLOW UP WITH UROLOGIST OF CHOICE--YOU MAY FOLLOW UP WITH DR. WILKES HERE IN [place], OR WITH THE UROLOGIST PREVIOUSLY REFERRED TO YOU AT [place] CONTINUE FLOMAX DAILY CONTINUE ZOFRAN NEEDED FOR NAUSEA TAKE HYROCODONE 1-2 EVERY 4-6 HOURS NEEDED FOR PAIN RETURN TO ER IF SYMPTOMS WORSEN All discharge instructions reviewed with patient and/or family. Voiced understanding. Scripts Hydrocodone Bit/Acetaminophen (HYDROcodone/APAP 7.5/325 TAB) 1 Ea Tablet 1-2 EA PO Q4-6 PRN for PAIN, #20 TAB Prov: SANDRA MUÑOZ DO 04/24/21 SANDRA MUÑOZ DO Apr 24, 2021 02:46
[2021-04-24] MEDS ORDERED: HYDR-34 PO (02:56)
[2021-04-24 03:57] VITALS: BP 167/95
--- NOTE | 2021-04-24 07:10 | Diagnostic Imaging Report ---
PROCEDURE: CT urinary tract, rule out kidney stone. TECHNIQUE: Multiple contiguous axial images were obtained through the abdomen and pelvis without the use of intravenous contrast. Auto Exposure Controls were utilized during the CT exam to meet ALARA standards for radiation dose reduction. INDICATION: Left flank pain. Comparison is made with prior CT from 08/28/2020. The lung bases are clear of acute infiltrates. The liver is unremarkable. There is high density material within the gallbladder which may represent vicarious excretion of contrast from prior imaging study. The pancreas and spleen are unremarkable. No adrenal mass is detected. Right kidney contains a punctate nonobstructing calculus in the upper pole. There is also a probable cyst in the right kidney anteriorly measuring 3.3 cm. Left kidney does show moderate hydronephrosis and there is significant left perirenal inflammatory stranding. Left ureter is dilated. There is a calculus in the distal left ureter approximately 3 mm in size. Significant periureteral inflammatory stranding is noted. No bladder calculi are seen. Prostate is unremarkable. There is no free fluid. Bowel loops are unremarkable. IMPRESSION: 1. Tiny nonobstructing right renal calculus. 2. A 3 mm distal left ureteric calculus producing moderate hydroureteronephrosis and perinephric inflammatory stranding. Dictated by: Dictated on workstation # [id number]
--- NOTE | 2021-04-24 07:17 | Diagnostic Imaging Report ---
INDICATION: Left flank pain. TIME OF EXAM: 1:52 AM Bowel gas pattern is nonobstructed. There is a large amount of stool throughout the colon, particularly the right colon. The distal left ureteric calculus noted on CT is possibly medially located left para-midline location in the pelvis. Multiple additional calcifications are noted which likely represent phleboliths. No other definite urinary tract calculi are detected. IMPRESSION: Left para-midline pelvic calcification may represent distal ureteric calculus noted on CT. Dictated by: Dictated on workstation # [id number]
== END 2021-04-24 04:02 | disposition home or self-care (01) ==
LOC: EDUNIT# 01:10 → ER 01:16
DX: N13.2 Hydronephrosis with renal and ureteral calculous obstruction (principal); N28.9 Disorder of kidney and ureter, unspecified; E87.1 Hypo-osmolality and hyponatremia; E66.01 Morbid (severe) obesity due to excess calories; I10 Essential (primary) hypertension; E11.9 Type 2 diabetes mellitus without complications; Z68.41 Body mass index [BMI] 40.0-44.9, adult
CPT/HCPCS: 36415; 74018; 74176; 80053; 80306; 81000; 85025